=== PATIENT | female | born 1980 | race American Indian/Alaskan Native ===

== ENCOUNTER 2019-10-12 05:47 | Emergency (ER) | payer MEDICAID ==
[2019-10-12 06:03] VITALS: BP 122/80
[2019-10-12] MEDS ORDERED: predniSONE 20 MG TAB PO ONE (08:46)
--- NOTE | 2019-10-12 08:54 | Emergency Department Report ---
HPI - General Chief Complaint: Extremity Injury, Lower Time Seen by Provider: 10/12/19 08:46 - HPI HPI: 39-year-old -[place] female presents to the emergency department with a complaint of pain that is in her left buttock and radiating down her left leg. This has been going on for the past 6 months. At first she says that it started in her lower back but she denies any current back pain. She denies any problems with bowel or bladder. Patient denies any numbness but does say that she occasionally has a pins and needles sensation, paresthesias, down in her foot. She denies any weakness but does say that sometimes the pain causes her to limp. She has a past medical history of asthma, GERD, migraines, bipolar disorder. Patient says that she was seen once for this previously at an urgent care and was placed on Tylenol 3 that did not provide her any relief. ED Past Medical Hx - Past Medical History Previous Medical History?: Yes Hx GERD: Yes Hx Headaches / Migraines: Yes Hx Psychiatric Treatment: Yes (Bipolar) Hx Asthma: Yes - Surgical History Past Surgical History?: Yes Additional Surgical History: C-Sec X 4 - Social History Smoking Status: Current Every Day Smoker Substance Use Type: Alcohol, Marijuana - Medications Home Medications: Home Medications Medication Instructions Recorded Confirmed Last Taken Type Cyclobenzaprine [Flexeril] 10 mg PO TID PRN #10 tablet 10/12/19 Unknown Rx predniSONE [Deltasone] 20 mg PO BID #10 tab 10/12/19 Unknown Rx ED Review of Systems ROS: Stated complaint: SHARP PAIN FROM BACK TO ANKLE,FATIGUE/WEAK Other details as noted in HPI Comment: All other systems reviewed and negative Constitutional: denies: chills, fever Musculoskeletal: arthralgia, myalgia. denies: back pain Skin: denies: rash, lesions Neurological: paresthesias. denies: weakness, numbness Physical Exam - Physical Exam Vital Signs: Vital Signs 10/12/19 06:01 Temperature 99.0 F Pulse Rate 71 Respiratory 18 Rate Blood Pressure 122/80 O2 Sat by Pulse 100 Oximetry Physical Exam: GENERAL: The patient is well-developed well-nourished. HEENT: Normocephalic. Atraumatic. Patient has moist mucous membranes. EYES: Extraocular motions are intact. NECK: Supple. Trachea is midline. CHEST/LUNGS: Clear to auscultation. There is no respiratory distress noted. HEART/CARDIOVASCULAR: Regular. There is no tachycardia. ABDOMEN: There is no abdominal distention. SKIN: Skin is warm and dry. NEURO: The patient is awake, alert, and oriented. The patient is cooperative. The patient has no focal neurologic deficits. The patient has normal speech. MUSCULOSKELETAL: There is no tenderness to palpation of the left lower extremity but there is reproducible pain or increased pain with movement of the leg including positive straight leg raise test. There is no limitation range of motion. There is no evidence of acute injury. +2 over 4 dorsalis pedis pulse of the left lower extremity. BACK: No midline thoracic or lumbar tenderness to palpation, step-off or deformity. ED Course Vital Signs 10/12/19 06:01 Temperature 99.0 F Pulse Rate 71 Respiratory 18 Rate Blood Pressure 122/80 O2 Sat by Pulse 100 Oximetry ED Medical Decision Making - Medical Decision Making This patient presents to the emergency department with a 6 month history of a traumatic left leg pain that started off in her back. No current back pain but the pain goes from the buttock down the leg. The pain increases with movement of the leg including a positive straight leg raise test. No swelling of the extremity or any skin color changes. She appears neurovascularly intact. All together this appears consistent with sciatica or some type of lumbar radicu lopathy. Patient denies any problems with bowel or bladder, any numbness. She was seen in the ambulatory in the emergency department with a slight limp. Patient was been placed on steroids and a muscle relaxer. She will have a referral for an orthopedist. Patient is instructed to return to the emergency Department with any worsening of her symptoms or any acute distress. - Differential Diagnosis sciatica, lumbar radiculopathy, muscle spasm, cellulitis Critical care attestation.: If time is entered above; I have spent that time in minutes in the direct care of this critically ill patient, excluding procedure time. ED Disposition Clinical Impression: Sciatica Disposition: TO HOME OR SELFCARE Is pt being admited?: No Condition: Stable Instructions: Sciatica (ED) Additional Instructions: Please follow up with a primary care physician in the next few days. I am also giving you a referral for a local orthopedic group, [facility], to follow up regarding your leg pain and suspected sciatica. Return to the emergency Department with any worsening of your symptoms are any acute distress. You have been prescribed a medication that is sedating. Therefore, it cannot be taken prior to driving, working, operating heavy machinery, being responsible for children, and it cannot be mixed with alcohol any quantity. Prescriptions: predniSONE [Deltasone] 20 mg PO BID #10 tab Cyclobenzaprine [Flexeril] 10 mg PO TID PRN #10 tablet PRN Reason: Muscle Spasm Referrals: [facility] [Provider Group] - 2-3 Days Time of Disposition: 08:58
== END 2019-10-12 09:44 | disposition home or self-care (01) ==
LOC: ED 05:47
DX: M54.32 Sciatica, left side (principal); K21.9 Gastro-esophageal reflux disease without esophagitis; G40.909 Epilepsy, unspecified, not intractable, without status epilepticus; F17.200 Nicotine dependence, unspecified, uncomplicated; F12.10 Cannabis abuse, uncomplicated; Z98.890 Other specified postprocedural states; Z79.899 Other long term (current) drug therapy
CPT/HCPCS: 99283; J7512